=== PATIENT | female | born 1940 | race Caucasian/White ===

== ENCOUNTER → 2017-07-27 | Outpatient (CLI) | payer MEDICARE ==
[~2017-07-27] MED LIST: CALC-141 PO; CHOL40002 PO; ESTR0.5T PO; FISH1CAP PO; LORA10TA3 PO; MULT-658 PO; NAPR220C PO; OXYC5CAP2 PO
== END | disposition home or self-care (01) ==
LOC: CFH 10:04
PROVIDERS: ATTEND Family Medicine
DX: Z12.31 Encounter for screening mammogram for malignant neoplasm of breast (principal)
CPT/HCPCS: 77063; 77067

== ENCOUNTER 2019-02-07 10:23 | Outpatient (CLI) | payer MEDICARE | END 2019-02-07 23:59 | disposition home or self-care (01) | LOC: CFH 10:23 | DX: Z12.31 Encounter for screening mammogram for malignant neoplasm of breast (principal); M85.88 Other specified disorders of bone density and structure, other site | CPT/HCPCS: 77063; 77067; 77080 ==

== ENCOUNTER 2019-02-12 13:29 | Outpatient (CLI) | payer MEDICARE | END 2019-02-12 23:59 | disposition home or self-care (01) | LOC: STAR 13:29 | PROVIDERS: ATTEND Orthopaedic Surgery | DX: Z01.818 Encounter for other preprocedural examination (principal); M16.11 Unilateral primary osteoarthritis, right hip | CPT/HCPCS: 36415; 80053; 85025; 87081; 93005 ==

== ENCOUNTER 2019-02-25 12:58 | Inpatient (IN) | payer MEDICARE ==
[~2019-02-25] VITALS: Ht 165.1 cm; Wt 94.8 kg
[~2019-02-25 12:58] MED LIST changes: +CHOL5000 PO; +EPINEPHRINE 1 MG/ML, 1ML ONE; +KETOROLAC 60 MG/2 ML ONE; +LACT1CAP37 PO; +LORA-247 PO; -LORA10TA3 PO; +MAGN250T8 PO; -NAPR220C PO; +NAPR220C62 PO; +ROPIvacaine/PF 0.2%, 20 ML ONE; +SODIUM CHLORIDE 0.9% 0 ML ONE; +TRANEXAMIC ACID 100 MG/ML, 10ML ONE
[2019-02-25] MEDS ORDERED: FENTANYL PF 250 MCG/5ML ONE (13:26)
[2019-02-25] MEDS ORDERED: MIDAZOLAM 1 MG/ML, 2ML ONE (13:26)
[2019-02-25] MEDS ORDERED: ROCURONIUM 10MG/ML,5ML ONE (13:27)
[2019-02-25] MEDS ORDERED: LIDOCAINE-MPF 2% ,5ML ONE (13:31)
[2019-02-25] MEDS ORDERED: ONDANSETRON 2MG/ML, 2ML ONE (13:31)
[2019-02-25] MEDS ORDERED: PROPOFOL 10 MG/ML, 20ML ONE (13:31)
[2019-02-25] MEDS ORDERED: DEXAMETHASONE 4 MG/ML, 1ML ONE (13:31)
[2019-02-25] MEDS ORDERED: APREPITANT 40 MG CAPSULE PO STA (13:32)
[2019-02-25] MEDS ORDERED: SUGAMMADEX 200 MG/2 ML IVPush ONE (13:47)
[2019-02-25] MEDS ORDERED: GABAPENTIN 300 MG CAPSULE PO ONE (14:00)
[2019-02-25] MEDS ORDERED: ACETAMINOPHEN 500 MG TABLET PO ONE (14:00)
[2019-02-25] MEDS ORDERED: KETOROLAC 60 MG/2 ML ONE (14:02)
[2019-02-25] MEDS ORDERED: SODIUM CHLORIDE 0.9% 50 ML ONE (14:03)
[2019-02-25] MEDS ORDERED: TRANEXAMIC ACID 100 MG/ML, 10ML ONE ×2 (14:03)
[2019-02-25] MEDS ORDERED: VANCOMYCIN 1,000 MG ONE (14:03)
[2019-02-25] MEDS ORDERED: EPINEPHRINE 1 MG/ML, 1ML ONE (14:03)
[2019-02-25] MEDS ORDERED: ROPIvacaine/PF 0.2%, 20 ML ONE (14:03)
[2019-02-25] MEDS: LACTATED RINGERS 1,000 ML IV SCH ×2 (14:10→14:11)
[2019-02-25] MEDS ORDERED: MAGNESIUM HYDROXIDE 8%, 30ML UDC PO PRN (14:30)
[2019-02-25] MEDS ORDERED: PROMETHAZINE 12.5 MG SUPP PR PRN (14:30)
[2019-02-25] MEDS ORDERED: HYDROmorphone 1 MG/ML, 1ML INJ IVPush PRN (14:30)
[2019-02-25] MEDS ORDERED: BISACODYL 10 MG SUPP PR PRN (14:30)
[2019-02-25] MEDS ORDERED: ZOLPIDEM 5MG TABLET PO PRN (14:30)
[2019-02-25] MEDS ORDERED: ONDANSETRON 4 MG TABLET PO PRN (14:30)
[2019-02-25] MEDS ORDERED: ALUMINUM/MAG/SIMETHICONE 30 ML UDC PO PRN (14:30)
[2019-02-25] MEDS ORDERED: DIPHENHYDRAMINE 50 MG CAPSULE PO PRN (14:30)
[2019-02-25] MEDS ORDERED: PSYLLIUM PACKET PO PRN (14:30)
[2019-02-25] MEDS ORDERED: CEFAZOLIN PMX 2GM/50ML 50 ML IVPB SCH (14:30)
[2019-02-25] MEDS ORDERED: SCOPOLAMINE PATCH, 1.5MG PATCH.TD72 TD SCH (14:30)
[2019-02-25] MEDS ORDERED: SENNA/DOCUSATE TABLET PO PRN (14:30)
[2019-02-25] MEDS: ACETAMINOPHEN 500 MG TABLET PO SCH ×2 (14:30→21:28)
[2019-02-25] MEDS ORDERED: DIAZEPAM 5 MG TABLET PO PRN (14:30)
[2019-02-25] MEDS ORDERED: PROMETHAZINE 25 MG/ML, 1ML IM PRN (14:30)
[2019-02-25] MEDS: KETOROLAC 30 MG/1 ML IV SCH ×3 (14:30→20:23)
[2019-02-25] MEDS ORDERED: PHENYLEPHRINE 10 MG/ML ONE (14:37)
[2019-02-25] MEDS ORDERED: CEFAZOLIN 1,000 MG ONE (14:37)
[2019-02-25] MEDS ORDERED: MEPERIDINE/PF 100 MG/ML ONE (16:18)
[2019-02-25] MEDS ORDERED: HYDROmorphone 2 MG/ML, 1ML IVPush PRN (16:30)
[2019-02-25] MEDS ORDERED: MEPERIDINE/PF 25MG/ML,1ML IVPush PRN (16:30)
[2019-02-25] MEDS ORDERED: OXYcodone 5 MG/5 ML ORAL.SOL UDC PO PRN (16:30)
[2019-02-25] MEDS ORDERED: hydrALAzine 20 MG/ML, 1ML IV PRN (16:30)
[2019-02-25] MEDS ORDERED: HALOPERIDOL 5 MG/ML IV PRN (16:30)
[2019-02-25] MEDS ORDERED: FENTANYL PF 100 MCG/2ML IV PRN (16:30)
[2019-02-25] MEDS ORDERED: PROMETHAZINE 25 MG/ML, 1ML IV PRN (16:30)
[2019-02-25] MEDS ORDERED: TRANEXAMIC ACID 1,000 MG in SODIUM CHLORIDE 0.9% 100 ML IV ONE (16:45)
[2019-02-25 19:41] VITALS: BP 116/72
[2019-02-25] MEDS: FERROUS SULFATE 325 MG TABLET PO SCH (20:10)
[2019-02-25] MEDS: OXYcodone IR 5MG TABLET PO PRN (20:21)
[2019-02-25] MEDS: CALCIUM/VITAMIN D3 250-125 TABLET PO SCH (21:28)
[2019-02-25] MEDS: DOCUSATE 100 MG CAPSULE PO SCH (21:28)
[2019-02-25] MEDS: D5%-0.45% NACL 1,000 ML IV SCH (21:28)
[2019-02-25] MEDS ORDERED: TRANEXAMIC ACID 1,000 MG in SODIUM CHLORIDE 0.9% 100 ML IVPB ONE (22:00)
[2019-02-25] MEDS: ASPIRIN 81 MG TABLET EC PO SCH (22:11)
[2019-02-25] MEDS: CEFAZOLIN PMX 2GM/50ML 50 ML IVPB SCH (22:11)
[2019-02-25] MEDS: ONDANSETRON 2MG/ML, 2ML IV PRN (22:11)
[2019-02-25 23:56] VITALS: BP 112/70
[2019-02-26] MEDS: OXYcodone IR 5MG TABLET PO PRN ×3 (00:18→13:02)
[2019-02-26] MEDS: ACETAMINOPHEN 500 MG TABLET PO SCH ×3 (03:28→13:03)
[2019-02-26 03:35] VITALS: BP 138/75
[2019-02-26] MEDS: ONDANSETRON 2MG/ML, 2ML IV PRN (03:52)
[2019-02-26] MEDS: KETOROLAC 30 MG/1 ML IV SCH ×2 (04:27→12:30)
[2019-02-26] MEDS ORDERED: DEXAMETHASONE 4 MG/ML, 1ML IVPush ONE (06:00)
[2019-02-26] MEDS: CEFAZOLIN PMX 2GM/50ML 50 ML IVPB SCH (06:18)
[2019-02-26 08:15] VITALS: BP 150/70
[2019-02-26] MEDS: ASPIRIN 81 MG TABLET EC PO SCH (08:33)
[2019-02-26] MEDS: CALCIUM/VITAMIN D3 250-125 TABLET PO SCH ×2 (08:33→13:02)
[2019-02-26] MEDS: DOCUSATE 100 MG CAPSULE PO SCH (08:33)
[2019-02-26] MEDS ORDERED: MULTIVITAMINS/MINERALS TABLET PO SCH (09:00)
[2019-02-26] MEDS: FERROUS SULFATE 325 MG TABLET PO SCH (09:00)
[2019-02-26] MEDS ORDERED: ASCORBIC ACID 500 MG TABLET PO SCH (09:00)
[2019-02-26] MEDS: D5%-0.45% NACL 1,000 ML IV SCH (11:00)
[2019-02-26 12:22] VITALS: BP 118/53
[2019-02-26 15:14] VITALS: BP 110/63
== END 2019-02-26 16:00 | disposition home or self-care (01) | DRG 469 ==
LOC: ORIP 12:58 → 4NOR 18:04 → 4NE 02-26 08:24 → DCLOUNGE 02-26 15:50
PROVIDERS: ADMIT Orthopaedic Surgery; ATTEND Orthopaedic Surgery
PROC: 0SR906A Replacement of Right Hip Joint with Oxidized Zirconium on Polyethylene Synthetic Substitute, Uncemented, Open Approach (ICD-10-PCS; principal; 2019-02-25 15:00)
DX: M16.11 Unilateral primary osteoarthritis, right hip (principal); R53.2 Functional quadriplegia; I10 Essential (primary) hypertension; Z88.8 Allergy status to other drugs, medicaments and biological substances; Z90.710 Acquired absence of both cervix and uterus; Z82.61 Family history of arthritis; Z88.2 Allergy status to sulfonamides; Z88.1 Allergy status to other antibiotic agents
CPT/HCPCS: 36415; 72170; 85014; 85018; 86850; 86900; C1713; G0378; J0171; J0690; J1100; J1885; J2250; J2405; J2704; J2795; J3010; J3370; J8501; Q0162; C1776; J2175; J2370; J7120

== ENCOUNTER → 2020-08-17 | Outpatient (CLI) | payer MEDICARE, OTHER ==
[~2020-08-17] MED LIST changes: -EPINEPHRINE 1 MG/ML, 1ML ONE; -KETOROLAC 60 MG/2 ML ONE; -ROPIvacaine/PF 0.2%, 20 ML ONE; -SODIUM CHLORIDE 0.9% 0 ML ONE; -TRANEXAMIC ACID 100 MG/ML, 10ML ONE
== END | disposition home or self-care (01) ==
LOC: CFH 12:42
PROVIDERS: ATTEND Family Medicine
DX: Z12.31 Encounter for screening mammogram for malignant neoplasm of breast (principal)
CPT/HCPCS: 77063; 77067